=== PATIENT | female | born 1980 | race Hispanic/Latino ===

== ENCOUNTER 2017-10-17 11:18 | Emergency (ER) | payer MEDICAID, SELFPAY | END 2017-10-17 12:51 | disposition home or self-care (01) | LOC: ERS 11:18 | DX: H10.9 Unspecified conjunctivitis (principal); J01.90 Acute sinusitis, unspecified; J45.909 Unspecified asthma, uncomplicated; F17.210 Nicotine dependence, cigarettes, uncomplicated | CPT/HCPCS: 99283 ==

== ENCOUNTER 2019-06-04 13:30 | Outpatient (CLI) | payer OTHER ==
--- NOTE | 2019-06-04 16:43 | ULT ---
PELVIC ULTRASOUND 06/04/19 HISTORY: Menorrhagia. TECHNIQUE: Multiplanar qiu scale and color Doppler images were obtained in a transabdominal and transvaginal pe lvic ultrasound. Spectral analysis of the Doppler waveforms of the ovaries were performed. FINDINGS: The uterus is retroverted in appearance. An IUD is seen within the endometrial canal. The endometrial stripe is normal, measuring 8 mm. No free fluid is seen in the pelvis. The right ovary is not visualized as it has been removed. The le ft ovary is normal in size and appearance and demonstrates normal internal flow. A dominant follicle in the left ovary measures 1.5 cm in size. IMPRESSION: 1. No significant acute abnormality of the pelvis. 2. IUD located in the uterus. POS: [facility]
== END 2019-06-04 13:31 | disposition home or self-care (01) ==
LOC: BICULT 13:30
PROVIDERS: ATTEND Advanced Practice Midwife
DX: N92.1 Excessive and frequent menstruation with irregular cycle (principal); Z97.5 Presence of (intrauterine) contraceptive device
CPT/HCPCS: 76856

== ENCOUNTER 2020-02-01 10:03 | Outpatient (CLI) | payer MEDICAID ==
--- NOTE | 2020-02-01 11:25 | ULT ---
TRANSABDOMINAL AND ENDOVAGINAL PELVIC ULTRASOUND: HISTORY: Painful, heavy menses. COMPARISON: 06/04/2019. TECHNIQUE: Transabdominal and endovaginal imaging of the pelvis is performed. Ovaries are interrogated with qiu scale, color flow, Doppler imaging and spectral wave form analysis. FINDINGS: Uterus: No myometrial masses. Uterus measurin.9 x 4.5 x 10.0 cm. Endometrium: Homogeneous echotexture. Intrauterine device is noted. Endometrium diameter: 0.4 cm. Free fluid: Trace fluid fluid in the pelvis. Right ovary: Surgically absent. Left ovary: Multiple anechoic foci occupy the majority the left ovary. Multiple left ovarian cysts ar e suspected. Largest loss control representative cyst measures 3.3 x 1.8 x 3.3 cm. There appear to be prominent left adnexal vessels. Left ovary measurements: Overall, the left ovary measures 4.0 x 3.4 x 6.1 cm. Ovarian Doppler: There is vascular flow to the left ovary. IMPRESSION: 1. Multicystic, enlarged left ovary. Short-term follow-up ultrasound in 6-8 weeks is recommended. 2. Redemonstration of an intrauterine device. Transcribed Date/Time: 02/01/2020 11:32 AM
== END 2020-02-01 10:04 | disposition home or self-care (01) ==
LOC: BICULT 10:03
PROVIDERS: ATTEND Nurse Practitioner Women's Health
DX: N93.9 Abnormal uterine and vaginal bleeding, unspecified (principal); N63.10 Unspecified lump in the right breast, unspecified quadrant; N83.202 Unspecified ovarian cyst, left side; N83.8 Other noninflammatory disorders of ovary, fallopian tube and broad ligament; Z97.5 Presence of (intrauterine) contraceptive device
CPT/HCPCS: 76856

== ENCOUNTER 2020-02-03 09:16 | Outpatient (CLI) | payer MEDICAID ==
--- NOTE | 2020-02-03 10:59 | MMO ---
Bilateral MAMMO Bilat Diag [facility]. CLINICAL HISTORY: Patient is 39 years old and is seen for diagnostic exam and lump or thickening in the right breast. The patient has no family history of breast cancer. The patient has no personal history of cancer. VIEWS: The views performed were: bilateral craniocaudal with tomosynthesis; bilateral mediolateral oblique with tomosynthesis; and bilateral mediolateral with tomosynthesis. FILMS COMPARED: The present examination has been compared to a prior imaging study performed at [facility] on 02/03/2020. This study has been interpreted with the assistance of computer-aided detection. MAMMOGRAM FINDINGS: The breasts are heterogeneously dense, which could obscure a lesion on mammography. There are intramammary lymph nodes seen in the outer region of both breasts. There are no concerning mammographic or sonographic abnormalities in the area of palpable concern. The patient is referred back to her clinician. Negative imaging findings should not preclude biopsy if clinical findings are suspicious. There are no suspicious masses, suspicious calcifications, or areas of architectural distortion. IMPRESSION: THERE ARE NO CONCERNING MAMMOGRAPHIC OR SONOGRAPHIC ABNORMALITIES IN THE AREA OF PALPABLE CONCERN. THE PATIENT IS REFERRED BACK TO HER CLINICIAN. NEGATIVE IMAGING FINDINGS SHOULD NOT PRECLUDE BIOPSY IF CLINICAL FINDINGS ARE SUSPICIOUS. THE RESULTS OF THIS EXAM WERE SENT TO THE PATIENT. ACR BI-RADS Category 2 - Benign finding MAMMOGRAPHY NOTE: 1. A negative mammogram report should not delay a biopsy if a dominant of clinically suspicious mass is present. 2. Approximately 10% to 15% of breast cancers are not detected by mammography. 3. Adenosis and dense breasts may obscure an underlying neoplasm. Reported by: GAYATHRI ANDRADE MD Electonically Signed: [id number]
--- NOTE | 2020-02-03 11:00 | MMO ---
Right US Breast Limited Rt. CLINICAL HISTORY: Patient is 39 years old and is seen for . VIEWS: The views performed were: . FILMS COMPARED: The present examination has been compared to a prior imaging study performed at [facility] on 02/03/2020. This study has been interpreted with the assistance of computer-aided detection. RIGHT BREAST ULTRASOUND FINDINGS: There is a lymph node measuring 6 millimeters seen in the right breast at 11 o'clock. There are no concerning mammographic or sonographic abnormalities in the area of palpable concern. The patient is referred back to her clinician. Negative imaging findings should not preclude biopsy if clinical findings are suspicious. On ultrasound, no suspicious findings are identified. IMPRESSION: THERE ARE NO CONCERNING SONOGRAPHIC ABNORMALITIES IN THE AREA OF PALPABLE CONCERN. THE PATIENT IS REFERRED BACK TO HER CLINICIAN. NEGATIVE IMAGING FINDINGS SHOULD NOT PRECLUDE BIOPSY IF CLINICAL FINDINGS ARE SUSPICIOUS. THE RESULTS OF THIS EXAM WERE SENT TO THE PATIENT. ACR BI-RADS Category 2 - Benign finding MAMMOGRAPHY NOTE: 1. A negative mammogram report should not delay a biopsy if a dominant of clinically suspicious mass is present. 2. Approximately 10% to 15% of breast cancers are not detected by mammography. 3. Adenosis and dense breasts may obscure an underlying neoplasm. Reported by: GAYATHRI ANDRADE MD Electonically Signed: [id number]
== END 2020-02-03 09:17 | disposition home or self-care (01) ==
LOC: BICMAMMO 09:16
PROVIDERS: ATTEND Nurse Practitioner Women's Health
DX: N63.10 Unspecified lump in the right breast, unspecified quadrant (principal)
CPT/HCPCS: 77066; G0279

== ENCOUNTER 2023-08-09 22:22 | Emergency (ER) | payer MEDICAID, SELFPAY ==
[2023-08-10] MEDS ORDERED: Boostrix 0.5 ML (Tdap) VIAL (>/=7 yrs of age) ONE (00:10)
== END 2023-08-10 01:00 | disposition home or self-care (01) ==
LOC: ERS 22:22
DX: S91.312A Laceration without foreign body, left foot, initial encounter (principal); F17.210 Nicotine dependence, cigarettes, uncomplicated; Z23 Encounter for immunization; W25.XXXA Contact with sharp glass, initial encounter
CPT/HCPCS: 90471; 90715

== ENCOUNTER 2024-04-16 10:13 | Emergency (ER) | payer SELFPAY ==
[2024-04-16] MEDS ORDERED: Lidocaine 1% PF 5 ML VIAL ONE (10:51)
[2024-04-16] MEDS ORDERED: Bacitracin 1 PK ONE (11:00)
== END 2024-04-16 11:20 | disposition home or self-care (01) ==
LOC: ERS 10:13
DX: S01.111A Laceration without foreign body of right eyelid and periocular area, initial encounter (principal); F17.210 Nicotine dependence, cigarettes, uncomplicated; W19.XXXA Unspecified fall, initial encounter
CPT/HCPCS: 12011; 99282

== ENCOUNTER 2024-04-23 17:09 | Emergency (ER) | payer SELFPAY | END 2024-04-23 17:37 | disposition home or self-care (01) | LOC: ERS 17:09 | DX: S01.111D Laceration without foreign body of right eyelid and periocular area, subsequent encounter (principal); F17.210 Nicotine dependence, cigarettes, uncomplicated; W01.0XXD Fall on same level from slipping, tripping and stumbling without subsequent striking against object, subsequent encounter; Y92.009 Unspecified place in unspecified non-institutional (private) residence as the place of occurrence of the external cause ==

== ENCOUNTER 2024-12-14 23:23 | Emergency (ER) | payer SELFPAY | END 2024-12-15 01:00 | disposition home or self-care (01) | LOC: ERS 23:23 | DX: S61.012A Laceration without foreign body of left thumb without damage to nail, initial encounter (principal); F17.210 Nicotine dependence, cigarettes, uncomplicated; W26.0XXA Contact with knife, initial encounter | CPT/HCPCS: 12031 ==

== ENCOUNTER 2025-06-26 14:03 | Emergency (ER) | payer SELFPAY ==
[2025-06-26] MEDS ORDERED: Dexamethasone 4 MG TAB ONE (15:02)
== END 2025-06-26 15:14 | disposition home or self-care (01) ==
LOC: ERS 14:03
DX: J02.9 Acute pharyngitis, unspecified (principal); B97.89 Other viral agents as the cause of diseases classified elsewhere; F17.210 Nicotine dependence, cigarettes, uncomplicated
CPT/HCPCS: 87081; 87428; 87430; J8540